=== PATIENT | male | born 1990 | race Two or more races ===

== ENCOUNTER 2017-02-25 21:58 | Emergency (ER) | payer MEDICAID ==
[~2017-02-25] VITALS: Ht 172.7 cm; Wt 72.6 kg
[2017-02-25 23:13] VITALS: BP 127/59
== END 2017-02-26 00:48 | disposition left against medical advice (07) ==
LOC: ER 22:18
DX: S91.119A Laceration without foreign body of unspecified toe without damage to nail, initial encounter (principal); Z53.21 Procedure and treatment not carried out due to patient leaving prior to being seen by health care provider; W45.8XXA Other foreign body or object entering through skin, initial encounter; Y93.01 Activity, walking, marching and hiking; Y99.8 Other external cause status; Y92.89 Other specified places as the place of occurrence of the external cause